=== PATIENT | female | born 1985 | race Caucasian/White ===

== ENCOUNTER 2018-03-22 03:39 | Inpatient (IN) | payer MEDICARE, MEDICAID ==
[2018-03-22] MEDS ORDERED: Naloxone HCl 0.4 mg/ml Vial ONE (03:42)
[2018-03-22] MEDS ORDERED: Naloxone HCl 2 mg/2 ml Syringe ONE (03:42)
[2018-03-22] MEDS ORDERED: Succinylcholine Chloride 20 MG/ML 10 ml SYRINGE FS ONE (03:50)
[2018-03-22 04:44] LABS: Acetaminophen Less than 6.0 mcg/mL (10.0-30.0); Alcohol Less than 10 mg/dL (Less than 10); CK (CPK) 176 U/L (29-168); Salicylate Less than 8.0 mg/dL (15.0-30.0)
[2018-03-22 04:46] LABS: ALT (SGPT) 22 U/L (8-55); AST (SGOT) 25 U/L (5-34); Albumin 4.4 g/dL (3.5-5.0); Alkaline Phosphatase 87 U/L (40-150); Anion Gap 14 mmol/L (10-20); BUN (Urea Nitrogen) 11 mg/dL (7.0-18.7); Bilirubin, Total 0.4 mg/dL (0.2-1.2); Calc. Creatinine Clearance 0 mL/min (70-130); Calcium 9.8 mg/dL (7.8-10.44); Carbon Dioxide 21 mmol/L (22-29); Chloride 108 mmol/L (98-107); Estimated GFR-MDRD 74; Globulin 3.4 g/dL (2.4-3.5); Glucose 147 mg/dL (70-105); Potassium 4.3 mmol/L (3.5-5.1); Protein, Total 7.8 g/dL (6.0-8.3); Sodium 139 mmol/L (136-145)
[2018-03-22 05:00] LABS: Pregnancy Test - Urine (BHCG) Negative (Negative)
[2018-03-22 05:02] LABS: Pregu Control Background? CLEAR/WHITE (CLR/WHITE); Pregu Control Bar Appear? YES (CONTROL BAR); Specific Gravity 1.028 (1.002-1.036)
[2018-03-22 05:15] LABS: Hemoglobin 13.7 g/dL (12.0-16.0); Mean Corpuscular HGB CONC 32.2 g/dL (32.0-36.0); Mean Corpuscular Hemoglobin 29.6 pg (27.0-31.0); Mean Corpuscular Volume 92.1 fL (78.0-98.0); Mean Platelet Volume 8.5 fL (7.4-10.4); Platelet Count 243 thou/uL (130-400); Red Blood Cell (RBC) Count 4.63 mill/uL (4.20-5.40); White Blood Cell (WBC) Count 15.1 thou/uL (4.8-10.8)
[2018-03-22 05:36] LABS: Amphetamine Detected (NotDetected); Barbiturates Screen Not Detected (NotDetected); Benzodiazepine Screen Not Detected (NotDetected); Cocaine Metabolite Screen Not Detected (NotDetected); Medtox Control Line Valid? VALID (VALID); Medtox Reader # READER 4; Methadone Not Detected (NotDetected); Methamphetamine Detected (NotDetected); Opiate Screen Not Detected (NotDetected); Oxycodone Screen Not Detected (NotDetected); Phencyclidine (PCP) Not Detected (NotDetected); THC/Cannabinoid Screen Not Detected (NotDetected); Tricyclic Screen Not Detected (NotDetected)
[2018-03-22 05:56] LABS: #Basophils 0.1 thou/uL (0.0-0.2); #Eosinphils 0.2 thou/uL (0.0-0.7); #Lymphocytes 3.1 thou/uL (1.20-3.40); #Monocytes 0.8 thou/uL (0.11-0.59); #Neutrophils 10.9 thou/uL (1.40-6.50); %Basophils 0.4 % (0.0-1.0); %Eosinophils 1.3 % (0.0-10.0); %Lymphocytes 20.4 % (21.0-51.0); %Monocytes 5.6 % (0.0-10.0); %Neutrophils 72.3 % (42.0-75.0); PLT Morphology Comment Appears Adequate; RBC Morphology Normal
[2018-03-22] MEDS ORDERED: Ondansetron PF 4 MG/2 ML Vial IVP PRN (06:06)
[2018-03-22] MEDS ORDERED: Ondansetron ODT 4 MG TAB PO PRN ×2 (06:06→06:55)
[2018-03-22] MEDS ORDERED: Acetaminophen 325 MG TAB PO PRN (06:06)
[2018-03-22] MEDS ORDERED: Sodium Chloride 0.9% 1,000 ML IV SCH (06:15)
[2018-03-22 06:59] VITALS: BMI 36.5
[2018-03-22] MEDS: Sodium Chloride 0.9% 1,000 ML IV SCH ×2 (07:33→16:12)
--- NOTE | 2018-03-22 08:35 | RAD ---
CHEST ONE VIEW: Indication: Found unresponsive. Comparison: 06-09-13 FINDINGS/IMPRESSION: The lungs are clear. The cardiomediastinal silhouette is within normal limits. No acute osseous abno rmality is evident. POS: BH
--- NOTE | 2018-03-22 13:39 | PDOC.EVN ---
Event Note - Event Note Event Note: care discussed w Mother Ms Elham Moeller.She reports that pt has done 'this" since she was 16 yrs of age. She ODs frequently to end [facility] and has had multiple Inpy psychiatry evals.Her Psychiatrist is in [place], [place]. Mother did receive a text from pt last night that she has attempted suicide by taking "clonidine". Discusssed DC plans and need for possible Inpt Psych transfer .MOM is Ok with that but deferred to pt as she is an adult. will follow.
--- NOTE | 2018-03-22 13:59 | HP ---
PRIMARY CARE PHYSICIAN: Unknown. PRIMARY PSYCHIATRIST: Dr. Renetta Portillo. CHIEF COMPLAINT: Unresponsiveness. HISTORY OF PRESENT ILLNESS: Ms. Blair is a 32-year-old female with history of anxiety and depress ion who was brought in for complaints of overdose. Not much history is available as the patient is s till very somnolent. According to the ER she took 50 pills of clonidine. But when I asked the patie nt, she says it was . I am not sure of what exactly she took. She also at some point reported that she took her son's medication for ADHD to sleep. I do not know if she took Adderall or not as h er urine is positive for amphetamines and methamphetamines. Not much history is otherwise obtainable from the patient as she is somnolent. However, when I wake her up she is coming around. I asked her if she is suicidal or if this was a suicide attempt, but sh marlene denied it. She states that she was having her maniac episode and just wanted to sleep. She was put in to IMCU overnight and has been hemodynamically stable and gradually waking up. Her mo ther was reportedly here earlier, but has left, so I have no family at bedside to get more history. PAST MEDICAL HISTORY: Anxiety and depression, as per the patient. PAST SURGICAL HISTORY: Unknown, the patient is not awake enough to provide any other history. No social history, family history, psychiatric history or medications or allergy list is available be cause of somnolence. REVIEW OF SYSTEMS: Limited due to somnolence, but she denies any pain or discomfort when woken up. LABORATORY DATA: CBC shows WBCs at 15.1. Serum chemistries unremarkable except for mild metabolic a cidosis, non-anion gap with bicarbonate of 21. Blood sugar 147, creatinine kinase 176. Urine pregna ncy test negative. Urine drug screen positive for amphetamine and methamphetamine. Chest x-ray unremarkable by my review. A 12-lead EKG done in the ER was reviewed by myself and it sh ows sinus rhythm at 62 beats per minute, no acute ST-T wave changes. PHYSICAL EXAMINATION: VITAL SIGNS: Most recent vital signs; temperature 98.8, pulse of 50, respirations 16, saturating 100 % on room air, blood pressure 123/82. GENERAL: She is in no acute distress and somnolent, but easily woken up with loud verbal and tactile stimulus. She is diaphoretic. Appears otherwise healthy. HEENT: Mucous membranes are slightly dry. No oropharyngeal exudate or erythema. Head is normocepha lic, atraumatic. Pupils equal, reactive to light and accommodation. Extraocular movement intact. NECK: Supple without any lymphadenopathy, JVD or bruit. CHEST: Clear to auscultation without any wheezing, rales or rhonchi. CARDIOVASCULAR: Rhythm is regular without any murmur, rubs or gallops. ABDOMEN: Soft, nontender, nondistended with positive bowel sounds. EXTREMITIES: Free of any cyanosis, clubbing, or edema. IMPRESSION AND PLAN: 1. Medication overdose. It is unclear as to what medication the patient took. She has some history of suicidal attempts in the past according to the nurse taking care of her, who has talked with her mother. We will call her family for further information. She is currently hemodynamically stable an d will be monitored. She will be continued on IV fluids and gently woken up. We will consult [facility] f or discharge disposition. She is otherwise medically cleared for [facility] evaluation. 2. Hyperglycemia. Unknown if the patient has history of diabetes or not. 3. Leukocytosis. No evidence to suggest infection at this time. Likely reactive distress. 4. Non-anion gap metabolic acidosis. Continue IV fluids and monitor. 5. Deep venous thrombosis and gastrointestinal prophylaxis. DISPOSITION: Ms. Blair is currently being admitted to [facility] after drug overdose: Intentional vers us unintentional. She denies any suicidal ideation or attempt at this time. Further management will depend upon her clinical course. Estimated length of stay at this time is at least 2-3 midnights. We will contact the family.
--- NOTE | 2018-03-22 21:13 | CON ---
DATE OF CONSULTATION: 03/22/2018 Ms. Blair is a 32-year-old female who intentionally took a large dose of Catapres last night. She tells me she took about 30 of these pills. She has not been really hypotensive, but has been somnol ent. In fact to get a history out of her, I did a significant sternal rub to get her to wake up. She is in the Intermediate Care Unit. PAST MEDICAL HISTORY: Remarkable for anxiety and depression. FAMILY HISTORY: Negative for lung disease. REVIEW OF SYSTEMS: Not obtainable because of her somnolence. PHYSICAL EXAMINATION: VITAL SIGNS: On exam, she is afebrile, heart rate 52, respiratory rate is 20, oximetry is 99, blood pressure 104/62. HEENT: Pupils reactive. Sclerae is anicteric. NECK: Supple. LUNGS: Clear. HEART: Regular rhythm. S1 and S2 are normal. ABDOMEN: Soft and nontender. EXTREMITIES: Without clubbing, cyanosis, or edema. Drug screens positive for amphetamines and methamphetamines. IMPRESSION: 1. Intentional Catapres overdose. 2. Methamphetamine use by drug screen. PLAN: Continue supportive care. She is adequately protecting her airway, but is intermittently quit e somnolent. Hopefully with her metabolism of her Catapres, this will gradually improve.
[2018-03-23] MEDS: Sodium Chloride 0.9% 1,000 ML IV SCH ×3 (00:22→09:48)
--- NOTE | 2018-03-23 09:44 | PRG ---
DATE OF SERVICE: 03/23/2018 Ms. Blair is more alert today. PHYSICAL EXAMINATION: VITAL SIGNS: Blood pressure is running between 96 and 100 systolic. She is afebrile, heart rate 62, respiratory rate 21, oximetry is 100% on room air. GENERAL: She is conversing in complete sentences and very coherent. LUNGS: Clear. HEART: Regular rhythm. ABDOMEN: Soft. IMPRESSION: 1. Catapres overdose, intentional. 2. Positive methamphetamine drug screen. This certainly could be a false positive. In any event, she needs an evaluation by [facility]. She is medically stable in my opinion. She also needs input from her psychiatrist in [place]. We had a long discussion about ways to manage her bipolar illness. I would not represcribe the Catapres. The nurse obtained the history from Ms. Blair that she was given Catapres for sleep. She is stable to move out of the Critical Care/Intermediate Care environment in my opinion. We will sign off.
--- NOTE | 2018-03-23 14:14 | PDOC.PN ---
- Subjective Encounter Start Date: 03/23/18 Encounter Start Time: 14:12 Subjective: feels better but still dizzy -: no N/V.denies any CP/SOB -: eating all her meals - Objective Resuscitation Status: Resuscitation Status FULL:Full Resuscitation MAR Reviewed: Yes Vital Signs & Weight: Vital Signs (12 hours) Temp Pulse Resp BP Pulse Ox 03/23/18 11:17 98.3 F 69 92/49 L 100 03/23/18 08:00 100 03/23/18 07:32 98.0 F 63 21 H 96/50 L 100 03/23/18 03:53 97.7 F 49 L 18 100/56 L 100 Weight Weight 226 lb 6 oz I&O: 03/22/18 03/23/18 03/24/18 06:59 06:59 06:59 Intake Total 3450 Output Total 750 Balance 2700 Result Diagrams: 03/22/18 04:05 03/22/18 04:05 Phys Exam - Physical Examination Constitutional: NAD HEENT: PERRLA, moist MMs, sclera anicteric, TM's clear, oral pharynx no lesions , 2+ tonsils Neck: no nodes, no JVD, supple, full ROM Respiratory: no wheezing, no rales, no rhonchi, clear to auscultation bilateral Cardiovascular: RRR, no significant murmur Gastrointestinal: soft, non-tender, no distention, positive bowel sounds Musculoskeletal: no edema, pulses present Neurological: non-focal, normal sensation, moves all 4 limbs Psychiatric: normal affect, A&O x 3 Skin: no rash Dx/Plan (1) Drug overdose Code(s): T50.901A - POISONING BY UNSP DRUG/MEDS/BIOL SUBST, ACCIDENTAL, INIT Status: Acute (2) Suicide attempt Status: Acute (3) Hypotension Status: Acute (4) Bradycardia Code(s): R00.1 - BRADYCARDIA, UNSPECIFIED Status: Acute - Plan DVT proph w/SCDs (restart IVF as BP on lower dise.) HR fluctuates but improving towards normal.OK to Transfer out of CCU -: As discussed w mom yesterday-multiple SI. -: This OD was also a SI per Pt's Mother -: discussed w [facility] & updated them as pt denies SI/attempt -: cont to monitor .not stable for DC.not clear from [facility] either Care discussed w RN * .total time spent 33 minutes in care coordination Review of Systems - Review of Systems Constitutional: weakness. negative: fever, chills, sweats, malaise, other Respiratory: negative: Cough, Dry, Shortness of Breath, Hemoptysis, SOB with Excertion, Pleuritic Pain, Sputum, Wheezing Cardiovascular: light headedness. negative: chest pain, palpitations, orthopnea , paroxysmal nocturnal dyspnea, edema, other Gastrointestinal: negative: Nausea, Vomiting, Abdominal Pain, Diarrhea, Constipation, Melena, Hematochezia, Other Genitourinary: negative: Dysuria, Frequency, Incontinence, Hematuria, Retention , Other Musculoskeletal: negative: Neck Pain, Shoulder Pain, Arm Pain, Back Pain, Hand Pain, Leg Pain, Foot Pain, Other Skin: negative: Rash, Lesions, Mamadou, Bruising, Other Neurological: negative: Weakness, Numbness, Incoordination, Change in Speech, Confusion, Seizures, Other - Medications/Allergies Allergies/Adverse Reactions: Allergies Allergy/AdvReac Type Severity Reaction Status Date / Time Unable to Assess Allergy Verified 03/22/18 06:58 Medications: Current Medications Acetaminophen (Tylenol) 650 mg PO Q4H PRN PRN Reason: Headache/Fever/Mild Pain (1-3) Sodium Chloride (Normal Saline 0.9%) 1,000 mls @ 75 mls/hr IV .[id number] RUTHY Last Admin: 03/23/18 09:48 Dose: 1,000 mls Ondansetron HCl (Zofran Odt) 4 mg PO Q6H PRN PRN Reason: Nausea/Vomiting Ondansetron HCl (Zofran) 4 mg IVP Q6H PRN PRN Reason: Nausea/Vomiting Sodium Chloride (Flush - Normal Saline) 10 ml IVF Q12HR PRN PRN Reason: Saline Flush Last Admin: 03/22/18 07:34 Dose: 10 ml Sodium Chloride (Flush - Normal Saline) 10 ml IVF PRN PRN PRN Reason: Saline Flush
[2018-03-23] MEDS: Acetaminophen 325 MG TAB PO PRN (15:17)
[2018-03-24] MEDS: Sodium Chloride 0.9% 1,000 ML IV SCH ×2 (02:54→18:00)
[2018-03-24 03:19] LABS: #Eosinphils 0.1 thou/uL (0.0-0.7); #Lymphocytes 1.5 thou/uL (1.20-3.40); #Monocytes 0.8 thou/uL (0.11-0.59); #Neutrophils 7.9 thou/uL (1.40-6.50); %Basophils 0.4 % (0.0-1.0); %Eosinophils 1.2 % (0.0-10.0); %Lymphocytes 14.4 % (21.0-51.0); %Monocytes 7.5 % (0.0-10.0); %Neutrophils 76.6 % (42.0-75.0); Hemoglobin 11.4 g/dL (12.0-16.0); Mean Corpuscular HGB CONC 33.5 g/dL (32.0-36.0); Mean Corpuscular Hemoglobin 30.5 pg (27.0-31.0); Mean Corpuscular Volume 91.1 fL (78.0-98.0); Mean Platelet Volume 7.6 fL (7.4-10.4); Platelet Count 234 thou/uL (130-400); RBC Distribution Width 11.7 % (11.5-14.5); Red Blood Cell (RBC) Count 3.73 mill/uL (4.20-5.40); White Blood Cell (WBC) Count 10.3 thou/uL (4.8-10.8)
[2018-03-24] MEDS: Acetaminophen 325 MG TAB PO PRN (06:31)
--- NOTE | 2018-03-24 13:47 | PDOC.PN ---
- Subjective Encounter Start Date: 03/24/18 Encounter Start Time: 13:44 Subjective: feels well. no new complaints -: some headache - Objective Resuscitation Status: Resuscitation Status FULL:Full Resuscitation MAR Reviewed: Yes Vital Signs & Weight: Vital Signs (12 hours) Temp Pulse Resp BP Pulse Ox 03/24/18 12:03 98.1 F 81 18 119/59 L 99 03/24/18 10:47 97.6 F 73 16 113/59 L 100 03/24/18 10:27 111/50 L 03/24/18 08:00 98.7 F 73 15 93/49 L 100 03/24/18 04:02 98.0 F 71 18 99/59 L 100 Weight Weight 226 lb 6 oz I&O: 03/23/18 03/24/18 03/25/18 06:59 06:59 06:59 Intake Total 3450 2791 Output Total 750 Balance 2700 2791 Result Diagrams: 03/24/18 03:11 03/22/18 04:05 Phys Exam - Physical Examination Constitutional: NAD HEENT: PERRLA, moist MMs, sclera anicteric, oral pharynx no lesions Neck: no nodes, no JVD, supple, full ROM Respiratory: no wheezing, no rales, no rhonchi, clear to auscultation bilateral Cardiovascular: RRR, no significant murmur, no rub Gastrointestinal: soft, non-tender, no distention, positive bowel sounds Musculoskeletal: no edema, pulses present Neurological: non-focal, normal sensation, moves all 4 limbs Dx/Plan (1) Drug overdose Code(s): T50.901A - POISONING BY UNSP DRUG/MEDS/BIOL SUBST, ACCIDENTAL, INIT Status: Acute (2) Suicide attempt Status: Acute (3) Hypotension Status: Acute (4) Bradycardia Code(s): R00.1 - BRADYCARDIA, UNSPECIFIED Status: Acute - Plan Talked w accepting MD at [facility].will transfer per [facility] recs -: HD stable. -: Discussed w mom on phone as well * . Review of Systems - Review of Systems Constitutional: negative: fever, chills, sweats, weakness, malaise, other Respiratory: negative: Cough, Dry, Shortness of Breath, Hemoptysis, SOB with Excertion, Pleuritic Pain, Sputum, Wheezing Cardiovascular: negative: chest pain, palpitations, orthopnea, paroxysmal nocturnal dyspnea, edema, light headedness, other Gastrointestinal: negative: Nausea, Vomiting, Abdominal Pain, Diarrhea, Constipation, Melena, Hematochezia, Other Genitourinary: negative: Dysuria, Frequency, Incontinence, Hematuria, Retention , Other Musculoskeletal: negative: Neck Pain, Shoulder Pain, Arm Pain, Back Pain, Hand Pain, Leg Pain, Foot Pain, Other Neurological: negative: Weakness, Numbness, Incoordination, Change in Speech, Confusion, Seizures, Other - Medications/Allergies Allergies/Adverse Reactions: Allergies Allergy/AdvReac Type Severity Reaction Status Date / Time Unable to Assess Allergy Verified 03/22/18 06:58 Medications: Current Medications Acetaminophen (Tylenol) 650 mg PO Q4H PRN PRN Reason: Headache/Fever/Mild Pain (1-3) Last Admin: 03/24/18 06:31 Dose: 650 mg Sodium Chloride (Normal Saline 0.9%) 1,000 mls @ 75 mls/hr IV .[id number] RUTHY Last Admin: 03/24/18 02:54 Dose: 1,000 mls Ondansetron HCl (Zofran Odt) 4 mg PO Q6H PRN PRN Reason: Nausea/Vomiting Ondansetron HCl (Zofran) 4 mg IVP Q6H PRN PRN Reason: Nausea/Vomiting Sodium Chloride (Flush - Normal Saline) 10 ml IVF Q12HR PRN PRN Reason: Saline Flush Last Admin: 03/22/18 07:34 Dose: 10 ml Sodium Chloride (Flush - Normal Saline) 10 ml IVF PRN PRN PRN Reason: Saline Flush
[2018-03-25] MEDS: Sodium Chloride 0.9% 1,000 ML IV SCH (08:00)
[2018-03-25] MEDS: Ondansetron PF 4 MG/2 ML Vial IVP PRN ×2 (09:56→15:36)
--- NOTE | 2018-03-25 11:38 | PDOC.PN ---
- Subjective Encounter Start Date: 03/25/18 Encounter Start Time: 11:37 Subjective: feels nauseated, no abd pain.some headache -: no dizziness.no CP/SOB - Objective Resuscitation Status: Resuscitation Status FULL:Full Resuscitation MAR Reviewed: Yes Vital Signs & Weight: Vital Signs (12 hours) Temp Pulse Resp BP Pulse Ox 03/25/18 11:09 98.4 F 98 18 94/59 L 96 03/25/18 08:00 96 03/25/18 07:24 99.0 F 65 16 105/71 96 03/25/18 04:00 73 16 99/67 100 Weight Weight 226 lb 6 oz I&O: 03/24/18 03/25/18 03/26/18 06:59 06:59 05:59 Intake Total 2791 1400 240 Balance 2791 1400 240 Result Diagrams: 03/24/18 03:11 03/22/18 04:05 Phys Exam - Physical Examination Constitutional: NAD HEENT: PERRLA, moist MMs, sclera anicteric, oral pharynx no lesions Neck: no nodes, no JVD, supple, full ROM Respiratory: no wheezing, no rales, no rhonchi, clear to auscultation bilateral Cardiovascular: RRR, no significant murmur, no rub Gastrointestinal: soft, non-tender, no distention, positive bowel sounds Musculoskeletal: no edema, pulses present Neurological: non-focal, normal sensation, moves all 4 limbs Psychiatric: normal affect, A&O x 3 Skin: no rash Dx/Plan (1) Drug overdose Code(s): T50.901A - POISONING BY UNSP DRUG/MEDS/BIOL SUBST, ACCIDENTAL, INIT Status: Acute (2) Suicide attempt Status: Acute (3) Hypotension Status: Acute (4) Bradycardia Code(s): R00.1 - BRADYCARDIA, UNSPECIFIED Status: Acute - Plan DC to [facility] when accepted -: Pt completly stable. -: no medical neccessity for inpt stay.Avoidable day #1 * . Review of Systems - Review of Systems Constitutional: negative: fever, chills, sweats, weakness, malaise, other ENT: negative: Ear Pain, Ear Discharge, Nose Pain, Nose Discharge, Nose Congestion, Mouth Pain, Mouth Swelling, Throat Pain, Throat Swelling, Other Respiratory: negative: Cough, Dry, Shortness of Breath, Hemoptysis, SOB with Excertion, Pleuritic Pain, Sputum, Wheezing Cardiovascular: negative: chest pain, palpitations, orthopnea, paroxysmal nocturnal dyspnea, edema, light headedness, other Gastrointestinal: negative: Nausea, Vomiting, Abdominal Pain, Diarrhea, Constipation, Melena, Hematochezia, Other Genitourinary: negative: Dysuria, Frequency, Incontinence, Hematuria, Retention , Other Musculoskeletal: negative: Neck Pain, Shoulder Pain, Arm Pain, Back Pain, Hand Pain, Leg Pain, Foot Pain, Other Neurological: negative: Weakness, Numbness, Incoordination, Change in Speech, Confusion, Seizures, Other - Medications/Allergies Allergies/Adverse Reactions: Allergies Allergy/AdvReac Type Severity Reaction Status Date / Time Unable to Assess Allergy Verified 03/22/18 06:58 Medications: Current Medications Acetaminophen (Tylenol) 650 mg PO Q4H PRN PRN Reason: Headache/Fever/Mild Pain (1-3) Last Admin: 03/24/18 06:31 Dose: 650 mg Sodium Chloride (Normal Saline 0.9%) 1,000 mls @ 75 mls/hr IV .[id number] Last Admin: 03/25/18 08:00 Dose: 1,000 mls Ondansetron HCl (Zofran Odt) 4 mg PO Q6H PRN PRN Reason: Nausea/Vomiting Ondansetron HCl (Zofran) 4 mg IVP Q6H PRN PRN Reason: Nausea/Vomiting Last Admin: 03/25/18 09:56 Dose: 4 mg Sodium Chloride (Flush - Normal Saline) 10 ml IVF Q12HR PRN PRN Reason: Saline Flush Last Admin: 03/22/18 07:34 Dose: 10 ml Sodium Chloride (Flush - Normal Saline) 10 ml IVF PRN PRN PRN Reason: Saline Flush
[2018-03-25 19:42] VITALS: BP 132/82; TEMP 98.6
--- NOTE | 2018-03-25 20:41 | PDOC.EVN ---
Event Note - Event Note Event Note: d/w [facility] licensing representative pt stating that she wasn't trying to commit suicide and wants to go home because she doesn't want another doctor "messing with her medications" for her psychiatric issues stated that my concern is for idiosyncratic medical decision making. If the patient's overdose was not intentional/ SI, but, as per pt, for self-medication of an acute manic episode, then my concern is that her baseline regimen is likely insufficient and in addition, she has insufficient outpatient support for adjustment and titration of her bipolar medications. It is my recommendation that the patient receive further treatment on an inpatient basis.
--- NOTE | 2018-03-25 22:19 | PDOC.EVN ---
Event Note - Event Note Event Note: d/w Dr. JOHNSTON receiving physician for inpatient psychiatric care pt accepted for transfer [phone] called discussed patient's current medical status and reviewed hx as present in chart
--- NOTE | 2018-03-27 10:54 | DIS ---
DATE OF ADMISSION: 03/22/2018 DATE OF DISCHARGE: 03/25/2018 DISCHARGE DISPOSITION: Inpatient psychiatry [facility]. DISCHARGE DIAGNOSES: 1. Suicidal attempt and suicidal ideation. 2. Drug overdose for suicidal attempt. 3. Hypertension and bradycardia due to clonidine overdose, resolved. ACCEPTING PHYSICIAN: at [facility]. INHOUSE CONSULTATIONS: Pulmonary Critical Care Medicine, Dr. Mathew. HISTORY OF PRESENT ILLNESS: Ms. Blair is a 32-year-old female with known history of multiple suicide attempts in the past according to her mother, who presented to the emergency room for altered mental status. History was obtained through the EMS. They reported the patient overdosed on clonidine and some other medication. She was able to protect her airways. She was somewhat hypotensive and bradycardic and was admitted to [facility] initially. Please see admission history and physical for further detail. Pulmonary Medicine and Critical Care physician, Dr. Mathew, was consulted while she was in the IMCU. HOSPITAL COURSE: The patient remained hemodynamically stable throughout the hospitalization. She was briefly treated with IV fluids for low blood pressure , but was taken off it and [facility] was consulted when she was stable. According to her mother whom I discussed her care, the patient had multiple attempts of suicide in the past. According to the mother, the patient had send her a text earlier before taking the clonidine that she is trying to take her life. [facility] recommended inpatient psychiatry and it was arranged at [facility]. The patient was monitored over an extended period of time as per the instruction from accepting psychiatrist because of some concern for low blood pressure and heart rate. However, the patient remained stable and eventually was accepted and was discharged yesterday evening. She was seen and examined prior to discharge. Please see hospitalist progress note from the date of discharge for further detail including [id number] interaction. KENISHA
--- NOTE | 2018-04-03 16:11 | EKG ---
Test Reason : OD Blood Pressure : / mmHG Vent. Rate : 062 BPM Atrial Rate : 062 BPM P-R Int : 146 ms QRS Dur : 084 ms QT Int : 392 ms P-R-T Axes : 035 055 029 degrees QTc Int : 397 ms Normal sinus rhythm Normal ECG Confirmed by MANI ANNE ([id number]), development editor TIM LOWERY ([id number]) on 04/03/2018 4:10:56 PM Referred By: Confirmed By:MANI ANNE
== END 2018-03-25 22:30 | DRG 918 ==
LOC: ERS 03:39 → EDBD 03:39 → IMCU/EMU 05:20 → ERS 06:32 → T4-A 03-24 17:21
PROVIDERS: ADMIT Internal Medicine; ATTEND Internal Medicine
DX: T46.5X2A Poisoning by other antihypertensive drugs, intentional self-harm, initial encounter (principal); E87.2 Acidosis; R00.1 Bradycardia, unspecified; I95.2 Hypotension due to drugs; F31.9 Bipolar disorder, unspecified; F41.8 Other specified anxiety disorders; Y92.009 Unspecified place in unspecified non-institutional (private) residence as the place of occurrence of the external cause
CPT/HCPCS: 36415; 36416; 51701; 71045; 80053; 80306; 80307; 81025; 82550; 85025; 93005; 96374; A4353; J2310; J2405